=== PATIENT | female | born 1985 | race African-American/Black ===

== ENCOUNTER → 2020-07-11 09:52 | Outpatient (CLI) | payer OTHER, SELFPAY ==
[2020-07-11 11:31] LABS: Free T4, Direct Thyroxine 1.06 ng/dL (0.78-2.19)
[2020-07-11 11:37] LABS: Prolactin 8.3 ng/mL (3.0-18.6)
[2020-07-11 11:45] LABS: TSH w/ Reflex to FT4 1.21 uIU/mL (0.47-4.68)
[2020-07-12 21:14] LABS: Follicle Stimulating Hormone 4.57 mIU/mL
[2020-07-14 03:36] LABS: Estrogen 275 pg/mL (.)
[2020-07-14 10:23] LABS: Anti Mullerian Hormone 3.92 ng/mL (.)
== END ==
PROVIDERS: PCP Registered Nurse Diabetes Educator; Referring Provider Obstetrics & Gynecology; Visit Provider Obstetrics & Gynecology
DX: N97.9 Female infertility, unspecified (principal)
CPT/HCPCS: 36415; 82397; 82672; 83001; 84146; 84439; 84443

== ENCOUNTER → 2020-11-14 09:59 | Outpatient (CLI) | payer OTHER, SELFPAY ==
--- NOTE | 2020-11-14 10:00 | DI.MG.S_ITS ---
BILATERAL DIGITAL DIAGNOSTIC MAMMOGRAM 3D/2D: 11/14/2020 CLINICAL: Baseline exam. Right breast mass. No prior exams were available for comparison. The tissue of both breasts is heterogeneously dense. This may lower the sensitivity of mammography. There is a possible 1.2 cm oval asymmetry with an obscured and indistinct margin in the right breast at 12 o'clock anterior depth. This is not seen in additional views, but correlates as palpated. Patient reportedly had mastitis in this area 3 weeks ago which has since largely resolved. No other significant masses, calcifications, or other findings are seen in either breast. IMPRESSION: INCOMPLETE: NEEDS ADDITIONAL IMAGING EVALUATION The possible 1.2 cm oval asymmetry in the right breast is probable resolving mastitis but remains indeterminate. An ultrasound for full evaluation of the palpable area is recommended. This was performed immediately following this exam. This exam was interpreted at Station ID: [id number]. NOTE: For mammograms, a report in lay terms will be sent to the patient. Approximately 15% of breast malignancies will not be visualized mammographically. In the management of a palpable breast mass, a negative mammogram must not discourage biopsy of a clinically suspicious lesion. Electronically Signed By: Nicky le/:11/14/2020 10:43:51 ACR BI-RADS Category 0: Incomplete [id number]
--- NOTE | 2020-11-14 10:00 | DI.US.S_ITS ---
LIMITED ULTRASOUND OF RIGHT BREAST: 11/14/2020 CLINICAL: Palpable right breast lump. Comparison is made to exam dated: 11/14/2020 [facility]. Color flow and real-time ultrasound of the right breast 11 o'clock region were performed. Hewitt scale images of the real-time examination were reviewed. There is a 5.6 cm x 2 cm x 0.8 cm wider than tall oval mass with irregular margins in the right breast at 11 o'clock anterior depth 4 cm from the nipple with the long axis parallel to the skin. This oval mass appears to contain complex fluid in some parts, is hypoechoic, with no posterior acoustic shadowing or enhancement. This correlates as palpated and with ultrasound findings. IMPRESSION: PROBABLY BENIGN The 5.6 cm x 2 cm x 0.8 cm wider than tall oval mass in the right breast is probably evidence of resolving mastitis, but also resembles a complicated cyst, or dense fibroglandular change and is probably benign. A follow-up ultrasound in 3 months is recommended to assess for resolution. Findings and recommendations were conveyed to the patient at time of exam. This exam was interpreted at Station ID: [id number]. Electronically Signed By: Nicky le/:11/14/2020 11:00:48 letter sent: Followup Recommended Ultrasound BI-RADS: 3 Probably benign
== END ==
PROVIDERS: PCP Registered Nurse Diabetes Educator; Referring Provider Registered Nurse Diabetes Educator; Visit Provider Registered Nurse Diabetes Educator
DX: N63.10 Unspecified lump in the right breast, unspecified quadrant (principal)
CPT/HCPCS: 76642; 77066; G0279

== ENCOUNTER → 2021-02-14 09:42 | Outpatient (CLI) | payer OTHER, SELFPAY ==
--- NOTE | 2021-02-14 09:43 | DI.US.S_ITS ---
LIMITED ULTRASOUND OF RIGHT BREAST: 02/14/2021 CLINICAL: Patient returns for short term follow-up of a probably benign mass in the right breast. Comparison is made [facility]2020 [facility] the right breast was performed. Hewitt scale images of the real-time examination were reviewed. The previously seen mass in the right breast at the 11 o'clock position 4 cm from the nipple has resolved. There is dense fibroglandular tissue in this location on the current exam, but no suspicious mass. IMPRESSION: BENIGN The previously seen right breast mass is compatible with mastitis and has resolved. There is no sonographic evidence of malignancy. Follow-up with ACR/ACS guidelines. This exam was interpreted at Station ID: [id number]. Electronically Signed By: Matthew roy/evelin:02/14/2021 12:17:25 letter sent: Clinical Evaluation Ultrasound BI-RADS: 2 Benign
== END ==
PROVIDERS: PCP Registered Nurse Diabetes Educator; Referring Provider Registered Nurse Diabetes Educator; Visit Provider Registered Nurse Diabetes Educator
DX: R92.8 Other abnormal and inconclusive findings on diagnostic imaging of breast (principal); N63.11 Unspecified lump in the right breast, upper outer quadrant
CPT/HCPCS: 76642

== ENCOUNTER → 2021-08-20 17:09 | Outpatient (CLI) | payer OTHER, SELFPAY | PROVIDERS: PCP Registered Nurse Diabetes Educator; Referring Provider Obstetrics & Gynecology; Visit Provider Obstetrics & Gynecology | DX: N97.9 Female infertility, unspecified (principal) | CPT/HCPCS: 36415; 84144 ==